=== PATIENT | female | born 1980 | race Caucasian/White ===

== ENCOUNTER → 2021-02-13 | Outpatient (CLI) | payer BC ==
[~2021-02-13] MED LIST: CIMZIA400 MG/2 M SQ; FOLIC ACID0.4 MG PO; IRON325 M1 PO; NORCO 7.5-3251 EACH PO; PRENATAL VITAMIN PO; VITAMIN B-1000 MCG/M IM; VITAMIN D50000 UNIT PO
== END ==
LOC: US 07:41
DX: M79.661 Pain in right lower leg (principal)
CPT/HCPCS: 93971